=== PATIENT | male | born 1985 | race Caucasian/White ===

== ENCOUNTER 2021-04-09 10:21 | Emergency (ER) | payer BC, SELFPAY ==
[2021-04-09 10:22] VITALS: BP 164/95; PULSE 94; RESP 16; TEMP 36.4; O2SAT 97; BMI 37.6
[2021-04-09] MEDS: Diphth,Pertuss(Acell),Tet Vac 0.5 ML Vial IM (10:49)
[2021-04-09 11:00] VITALS: RESP 18
[2021-04-09] MEDS: Lidocaine 1% /Epi 1:100 (20ml) 20 ML Vial 10 ML INFILT (11:00)
--- NOTE | 2021-04-09 11:04 | EX.ED.GENINJ ---
HPI History of Present Illness Chief Complaint: Laceration Informant: patient Narrative Narrative: 35-year-old male presents with concern for left hand laceration. Cut with a pocket knife while cutting a zip tie. Denies any concern for foreign body. Not up-to-date on tetanus. PFSH PFSH Home Medications NK 04/09/21 [History Last Taken Unknown] Allergy/AdvReac Type Severity Reaction Status Date / Time No Known Allergies Allergy Verified 04/09/21 10:24 ROS ROS ED Constitutional Constitutional ED: Denies chills, fever(s) or sweats Eyes Eyes: Denies blurry vision, change in vision or diplopia ENT ENT ED: Denies rhinorrhea or sore throat Cardiovascular Cardiovascular: Denies chest pain, orthopnea, palpitations or racing heartbeat Respiratory/Chest Respiratory/Chest: Denies cough, dyspnea, dyspnea on exertion, orthopnea or sputum Gastrointestinal Gastrointestinal: Denies abdominal pain, constipation, diarrhea, melena, nausea or vomiting Genitourinary Genitourinary ED: Denies dysuria, hematuria or urinary frequency Musculoskeletal Musculoskeletal: Denies arthralgias, myalgias or neck pain Integumentary Reports other Details: wound Neurologic Neurologic: Denies headache(s), paresthesias or weakness Psychiatric Psychiatric: Denies anxiety or depression Hematologic/Lymphatic Hematologic/Lymphatic: Denies easy bleeding or easy bruising Allergic/Immunologic Allergic/Immunologic ED: Denies mouth swelling or tongue swelling EXAM Physical Exam Const Vital Signs: 04/09/21 10:22 Temperature 97.6 F L Temperature Source Temporal Pulse Rate 94 Respiratory Rate 16 Blood Pressure 164/95 H Blood Pressure Mean 118 Pulse Ox 97 Oxygen Delivery Method Room Air Positive well nourished and well developed General Appearance ED: well developed HEENT Reports TM's clear and moist mucous membranes normocephalic and atraumatic Tympanic Membrane ED: Yes TM's clear Eyes PERRL and EOMs intact bilaterally Neck no lymphadenopathy, supple and no JVD Chest Wall inspection of chest normal Resp normal respiratory effort and clear to auscultation bilaterally Cardio regular rate, S1 normal heart sound, S2 normal heart sound and no murmurs Peripheral Pulses: pulses 2+ throughout GI soft to palpation, non-tender and non-distended Back/Spine no CVA tenderness and no thoracic nor lumbar tenderness Extremity normal to inspection General Extremety ED: Negative for edema or tenderness General Extremity: Negative for edema Neuro oriented x3, CN's II-XII intact bilaterally and no sensory deficits noted Sensorium / Orientation: alert Motor Exam: strength 5/5 throughout Psych mental status grossly normal Skin Skin Narrative: 2 cm laceration to the left dorsal hand. Subcutaneous fat exposed. PROC Procedures Lacerations hand: Length: 0.79 in Depth: Skin Shape: Linear Prep: Shure-Clens Laceration repair: Lidocaine with epi and Local Irrigated (ml): 50 Number of Sutures/Anny: 3 Suture Information: Ethilon Discharge Plan Triage Chief Complaint: Laceration ED Provider: Jeff Buenrostro Dx/Rx/DC Orders Clinical Impression: Hand laceration Instructions: ED Laceration, Hand: All Closures Prescriptions: No Action NK RF: 0 Activity Restrictions/Additional Instructions: Please have removed in 10-14 days. Disposition Disposition: Home, Self Care
--- NOTE | 2021-04-09 11:18 | ED.RN ---
PT OBSERVED FOR SHOT TIME FOR GREATER THAN 15 MINUTES NO REACTION NOTED BY THIS RN, PT D/C.
[2021-04-09 11:35] VITALS: RESP 18
== END 2021-04-09 12:01 | disposition home or self-care (01) ==
LOC: ED 11:25
PROVIDERS: Emergency Provider Emergency Medicine
DX: S61.421A Laceration with foreign body of right hand, initial encounter (principal); W26.0XXA Contact with knife, initial encounter
CPT/HCPCS: 12001; 90471; 90715; 99282